=== PATIENT | female | born 1955 | race Caucasian/White ===

== ENCOUNTER 2018-07-09 23:20 | Emergency (ER) | payer OTHER | END 2018-07-10 00:41 | disposition home or self-care (01) | LOC: E/R 23:20 | DX: I16.0 Hypertensive urgency (principal); H66.002 Acute suppurative otitis media without spontaneous rupture of ear drum, left ear; B34.9 Viral infection, unspecified; I10 Essential (primary) hypertension; Z87.891 Personal history of nicotine dependence | CPT/HCPCS: 99282; Z7502 ==